=== PATIENT | female | born 1965 | race Caucasian/White ===

== ENCOUNTER 2017-04-11 12:17 | Outpatient (CLI) | payer OTHER ==
--- NOTE | 2017-04-13 10:02 | Mammography Report ---
DIGITAL SCREENING MAMMOGRAM: 04/11/2017 CLINICAL INDICATION: A 52-year-old nulliparous patient for screening. COMPARISON: 08/2015, 11/2013, 10/2006, 08/2005. The breasts demonstrate scattered fibroglandular densities bilaterally. A few punctate, typically be nign calcifications are present. No suspicious masses, clustered microcalcifications, or regions of architectural distortion are identified. IMPRESSION: BENIGN FINDINGS. RECOMMENDATION: ROUTINE ANNUAL SCREENING UNLESS OTHERWISE CLINICALLY INDICATED. BIRADS CATEGORY: 2, BENIGN FINDINGS. STANDARD QUALIFYING STATEMENTS 1. This examination was reviewed with the aid of Computed-Aided Detection (CAD). 2. A negative or benign imaging report should not delay biopsy if clinically suspicious findings are present. Consider surgical consultation if warranted. More than 5% of cancers are not identified b y imaging. 3. Dense breasts may obscure an underlying neoplasm. JOB #: [id number] EXT JOB #:[id number]
== END 2017-04-11 12:18 | disposition home or self-care (01) ==
LOC: DI.S 12:17
PROVIDERS: ATTEND Physician Assistant
DX: Z12.31 Encounter for screening mammogram for malignant neoplasm of breast (principal)
CPT/HCPCS: 77067

== ENCOUNTER 2017-08-23 14:52 | Outpatient (CLI) | payer OTHER ==
--- NOTE | 2017-08-26 22:25 | XRAY Report ---
DATE OF SERVICE: 08/23/2017 TWO VIEW CHEST: 08/23/2017 CLINICAL INDICATION: Cough, wheezing. FINDINGS: Frontal and lateral views of the chest demonstrate a normal cardiac silhouette. The lung s are clear. No effusion or pneumothorax is present. IMPRESSION: Normal chest. TD: 08/24/2017 19:00
== END 2017-08-23 14:53 | disposition home or self-care (01) ==
LOC: DI.S 14:52
PROVIDERS: ATTEND Nurse Practitioner Family
DX: R05 Cough (principal); R06.2 Wheezing
CPT/HCPCS: 71020

== ENCOUNTER 2017-10-20 10:49 | Outpatient (CLI) | payer OTHER ==
--- NOTE | 2017-10-20 12:20 | CT Report ---
EXAM: CT CHEST EXAM DATE: 10/20/2017 11:23 AM. CLINICAL HISTORY: CHRONIC COUGH. COMPARISONS: Chest radiograph 08/23/2017. TECHNIQUE: Routine helical CT imaging was performed through the chest. IV contrast: None. Reconstruct ions: Coronal and sagittal. In accordance with CT protocol optimization, one or more of the following dose reduction techniques w ere utilized for this exam: automated exposure control, adjustment of mA and/or KV based on patient s ize, or use of iterative reconstructive technique. FINDINGS: Lungs/Pleura: There is a tiny 1.6 mm nodule in the right middle lobe as seen on series 4, image 32. N o bronchial thickening, consolidation, or edema. Pulmonary vasculature is normal. No pericardial or p leural effusion. No pneumothorax. Mediastinum: Normal. No adenopathy or masses. The heart and great vessels are normal. Bones: Unremarkable. Visualized Abdomen: There is diverticulosis. Remainder of the visualized abdomen is unremarkable. Other: None. IMPRESSION: 1. Tiny 1.6 mm nodule in the right middle lobe. For nodules <6 mm, no routine follow-up is needed in low-risk patients. Optional CT at 12 months can be performed in high risk patients. This is according to Fleischner society recommendations 2017. 2. The remainder of the chest is unremarkable. 3. Diverticulosis. [facility] Referring Provider Line: [phone] SITE ID: [id number]
== END 2017-10-20 10:50 | disposition home or self-care (01) ==
LOC: DI 10:49
PROVIDERS: ATTEND Registered Nurse
DX: R91.1 Solitary pulmonary nodule (principal); K57.90 Diverticulosis of intestine, part unspecified, without perforation or abscess without bleeding
CPT/HCPCS: 71250

== ENCOUNTER 2017-11-20 10:30 | Outpatient (CLI) | payer OTHER ==
--- NOTE | 2017-11-20 12:18 | Ultrasound Report ---
RIGHT UPPER QUADRANT ULTRASOUND: 11/20/2017 CLINICAL INDICATION: Elevated LFTs. TECHNIQUE: Real-time scanning was performed with medical office representative static images obtained. FINDINGS: The liver measures 17.2 cm. Hepatic echogenicity is diffusely increased, compatible with fatty infiltration. In the lateral right lobe of the liver, there is a 1.5 x 1.3 x 1.1 cm echogenic nodule. Further evaluation with liver protocol CT is recommended to evaluate for a hemangioma at this site. The gallbladder is normal. The common bile duct measures 3 mm. The right kidney measures 11.8 cm, and demonstrates no hydronephrosis. No free fluid is present. IMPRESSION: 1. FATTY INFILTRATION OF THE LIVER. NO EVIDENCE OF CHOLELITHIASIS OR BILIARY OBSTRUCTION. 2. ECHOGENIC 1.5 CM NODULE IN THE LATERAL RIGHT LOBE OF THE LIVER. FURTHER EVALUATION WITH LIVER PROTOCOL CT IS RECOMMENDED TO EVALUATE FOR A HEMANGIOMA AT THIS SITE. TD: 11/20/2017 12:17
== END 2017-11-20 10:31 | disposition home or self-care (01) ==
LOC: DI 10:30
PROVIDERS: ATTEND Physician Assistant
DX: K76.0 Fatty (change of) liver, not elsewhere classified (principal); R16.0 Hepatomegaly, not elsewhere classified
CPT/HCPCS: 76705

== ENCOUNTER 2017-11-24 08:33 | Outpatient (CLI) | payer OTHER ==
[2017-11-24 09:08] LABS: ALBUMIN 4.3 g/dL (3.2-5.5); ALBUMIN/GLOBULIN RATIO 1.3 (1.0-2.2); BILIRUBIN,TOTAL 0.8 mg/dL (0.2-1.0); CALCIUM 9.4 mg/dL (8.5-10.3); CREATININE 0.5 mg/dL (0.4-1.0); TOTAL PROTEIN 7.5 g/dL (6.7-8.2)
[2017-11-24] MEDS ORDERED: IOPAMIDOL-300 100 ML VIAL ONE (09:40)
[2017-11-24] MEDS ORDERED: IOPAMIDOL-300 100 ML VIAL IVP ONE (10:24)
--- NOTE | 2017-11-24 21:20 | CT Report ---
EXAM: CT ABDOMEN WITHOUT AND WITH CONTRAST EXAM DATE: 11/24/2017 10:25 AM. CLINICAL HISTORY: Abnormal liver nodule, right upper quadrant. COMPARISONS: None. TECHNIQUE: Routine multiphase liver CT before and after the administration of IV contrast including 3 phase postcontrast imaging. IV contrast: ISOVUE 300, 100 mL. Enteric contrast: None. Reconstructions : Coronal and sagittal. In accordance with CT protocol optimization, one or more of the following dose reduction techniques w ere utilized for this exam: automated exposure control, adjustment of mA and/or KV based on patient s ize, or use of iterative reconstructive technique. FINDINGS: Lung Bases: Normal. Liver: Mild diffuse decreased density is consistent with fatty infiltration. There is a bilobed lesio n within the lateral aspect of the lower right lobe which is most evident on the portal venous phase of enhancement measuring approximately 1.9 x 2.7 cm (). On precontrast imaging there is subtle, s light increased density suggested within at least a portion of this relative to the liver diffusely, which could indicate an area of greater focal fatty infiltration. There is some subtle peripheral enh ancement suggested on the initial postcontrast phase (actually late arterial/early portal), without d istinct nodularity. Lesion is less evident on the delayed imaging with some probable progressive velasquez yed enhancement. Therefore, this may represent a hemangioma although it is not definitive. No other h epatic abnormality demonstrated. Gallbladder/Biliary System: Normal. No ductal dilatation or visualized stones. Other Solid Organs: Normal. No masses or abnormal enhancement. Bowel: The visualized bowel loops are normal. Bones: Degenerative disease in the lumbar spine. No acute abnormality demonstrated. Other: None. IMPRESSION: 1. Approximately 2.7 cm focal lesion within the right hepatic lobe corresponds with the ultrasound fi nding and demonstrates some features suggestive of a hemangioma, although the findings are not diagno stic. If further characterization were indicated, MR imaging with and without contrast would be recom mended. 2. Diffuse fatty infiltration of the liver. 3. No other acute abnormality of the abdomen demonstrated. [facility] Referring Provider Line: [phone] SITE ID: [id number]
== END 2017-11-24 08:34 | disposition home or self-care (01) ==
LOC: DI 08:33
PROVIDERS: ATTEND Physician Assistant
DX: K76.9 Liver disease, unspecified (principal); K76.0 Fatty (change of) liver, not elsewhere classified; R10.11 Right upper quadrant pain
CPT/HCPCS: 74170; 80053; Q9967

== ENCOUNTER 2017-12-05 14:41 | Outpatient (CLI) | payer OTHER ==
[~2017-12-05 14:41] MED LIST: GADOBUTROL 15 MMOL/15 ML VIAL ONE
[2017-12-05] MEDS ORDERED: GADOBUTROL 15 MMOL/15 ML VIAL IVP ONE (15:44)
--- NOTE | 2017-12-06 08:49 | MRI Report ---
EXAM: MR ABDOMEN WITH AND WITHOUT CONTRAST (MR LIVER) EXAM DATE: 12/05/2017 03:52 PM. CLINICAL HISTORY: FATTY (CHANGE OF) LIVER, LIVER DISEASE. Evaluate indeterminate liver lesion COMPARISON: 11/24/2017 CT. TECHNIQUE: Multiplanar breath-hold T1, T2, and DWI sequences obtained through the abdomen on an [facility] justice. Images obtained before and after administration of 12 mL Gadavist intravenous contrast. Multip hase postcontrast images obtained of the liver and abdomen. FINDINGS: Lung Bases: Unremarkable. Liver: The liver has normal size and morphology. Moderate to severe signal loss on opposed phase imag ing compared to in phase imaging reflects moderate to severe diffuse hepatic steatosis. Lesions seen on comparison study represents a 3.1 x 2.1 cm hepatic segment 5/6 subcapsular lesion (801/10) demonst rating avid T2 signal hyperintensity. On dynamic contrast-enhanced sequences this lesion shows progre ssive subtle rim enhancement with nodular discontinuous enhancement on the delayed phase but does not completely fill in. Given these imaging findings, the lesion is most consistent with a benign sclero sing hemangioma. No other focal liver lesions are seen. Hepatic and portal veins are patent. Gallbladder/bile ducts: The gallbladder is partially distended and appears normal with no wall thicke paulie or stone. No intrahepatic or extra hepatic biliary dilation or filling defects seen. No abnormal biliary enhancement. Pancreas: The pancreas appears normal with no mass or ductal dilatation. Spleen: The spleen appears normal. Kidneys and Adrenals: The kidneys appear normal with no mass or hydronephrosis. There are few simple cortical and parapelvic cysts in the kidneys bilaterally. cysts in the kidneys. The adrenals appear n ormal. Bowel: The small bowel and colon appear normal caliber with no inflammation or obstruction. Scattered colonic diverticula seen. Retroperitoneum: The retroperitoneal structures appear normal with no mass or lymphadenopathy. Bones: No focal marrow signal abnormalities in the visualized bones. Multilevel mild degenerative dis k desiccation seen throughout the spine. IMPRESSION: 1. 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 No other focal liver lesion is seen. 2. Moderate to severe diffuse hepatic steatosis evident. [facility] Referring Provider Line: [phone] SITE ID: [id number]
== END 2017-12-05 14:42 | disposition home or self-care (01) ==
LOC: DI 14:41
PROVIDERS: ATTEND Physician Assistant
DX: D18.03 Hemangioma of intra-abdominal structures (principal); K76.0 Fatty (change of) liver, not elsewhere classified
CPT/HCPCS: 74183; A9585

== ENCOUNTER 2018-01-05 15:49 | Outpatient (CLI) | payer OTHER ==
--- NOTE | 2018-01-07 09:11 | MRI Preliminary Report ---
Exam: MRI CERVICAL SPINE W/O IMPRESSION: 1. Potentially significant central canal stenosis at multiple levels. Anterior cord compression and p rominent central stenosis is present from posterior disk herniations, these findings are most severe at the C5-C6 and C6-C7 levels. 2. Prominent degenerative foraminal stenosis at multiple levels, especially on the right at C2-C3, on the left at C3-C4, bilaterally at C4-C5 and on the right at C5-C6. 3. No definite focal signal abnormality of the spinal cord including were compressed at multiple leve ls. 4. Multiple additional degenerative changes with less severe appearing stenosis are present as enumer ated level by level in the final report. [facility] SITE ID: [id number]
--- NOTE | 2018-01-07 09:41 | MRI Report ---
EXAM: MRI CERVICAL SPINE WITHOUT CONTRAST EXAM DATE: 01/05/2018 04:35 PM. CLINICAL HISTORY: Chronic neck pain. Cervical radiculopathy. COMPARISONS: No prior cervical spine MRI. TECHNIQUE: Multiplanar, multisequence T1-weighted and fluid-sensitive sequences of the cervical spine without contrast. Other: None. FINDINGS: Neurologic Structures: The visualized posterior fossa structures are unremarkable. Multilevel central stenosis and anterior cord compression by disk herniations, likely chronic, no clearly defined assoc iated signal abnormality of the compressed spinal cord. Alignment: No focal malalignment. Bone Marrow: No acute marrow edema. Interspace Levels/Facets: C1-C2: Unremarkable. C2-C3: Patent central canal. No cord impingement. Shallow bulging annulus. Bilateral foraminal stenos is, minimal to mild on the left but at least moderate on the right. Prominent facet arthropathy on th e right with anterior and posterior facet spurring which contributes anteriorly to foraminal stenosis . C3-C4: Shallow bulging annulus. Minimal central stenosis. No cord impingement. Foraminal stenosis is mild on the right and moderate to severe on the left from asymmetric left greater than right uncinate process spurring, facet arthropathy and additional protrusion of disk into the left neural foramen. C4-C5: Moderate degenerative disk disease. Mild central stenosis from a broad-based posterior disk pr otrusion that is more severe to the right of midline and protrudes posteriorly into the central canal 2-3 mm. Mild flattening of the ventral cord surface especially right of midline. Bilateral foraminal stenosis from uncinate process spurring and mild facet hypertrophy is present, foraminal stenosis ap pears moderate to severe bilaterally. C5-C6: Moderately prominent degenerative disk disease with anterior and posterior marginal spurring a nd large broad-based posterior disk herniation creating at least moderate central canal stenosis. In the midline disk material protrudes posteriorly into the central canal at least 5 mm and there is mod erately prominent compression of the anterior spinal cord with CSF space effacement ventrally and paul paula. The midline AP dimension of the central canal is reduced to approximately 5 mm. Bilateral dege nerative foraminal stenosis appears mild to moderate on the left and at least moderate on the right. C6-C7: Moderate to marked degenerative disk disease. Anterior and posterior marginal spurring. Modera tely prominent central canal stenosis from a large broad-based posterior disk protrusion that extends posteriorly into the central canal at least 4 mm, creating prominent stenosis of the central canal w ith AP dimension of the central canal reduced in the midline to 4-5 mm. Bilateral foraminal stenosis is minimal to mild. C7-T1: Mild central canal stenosis and moderate lateral recess stenosis to the left of midline from a broad-based left posterior paracentral disk protrusion that extends into the central canal posterior ly about 3.5 mm. Minimal ventral cord flattening to the left of midline. Patent right foramen. Forami nal stenosis on the left is mild. T1-T2: Mild central canal stenosis to the left of midline where there is a 3 mm deep posterior disk p rotrusion on the left. Musculature: Mild diffuse posterior paraspinal muscle fatty atrophy without acute edema or significan t asymmetry. Other: No focal prevertebral soft tissue thickening. IMPRESSION: 1. Potentially significant central canal stenosis at multiple levels. Anterior cord compression and p rominent central stenosis is present from posterior disk herniations, these findings are most severe as described above at the C5-C6 and C6-C7 levels. 2. Prominent degenerative foraminal stenosis at multiple levels, especially on the right at C2-C3, on the left at C3-C4, bilaterally at C4-C5, and on the right at C5-C6. 3. No definite focal signal abnormality of the spinal cord including where compressed at multiple lev els. 4. Multiple additional degenerative changes with less severe appearing stenosis are present as enumer ated level by level above. [facility] Referring Provider Line: [phone] SITE ID: [id number]
== END 2018-01-05 15:50 | disposition home or self-care (01) ==
LOC: DI 15:49
PROVIDERS: ATTEND Physician Assistant
DX: M54.12 Radiculopathy, cervical region (principal); M54.2 Cervicalgia; G89.29 Other chronic pain; R51 Headache; M50.30 Other cervical disc degeneration, unspecified cervical region; M99.81 Other biomechanical lesions of cervical region
CPT/HCPCS: 72141

== ENCOUNTER 2018-12-27 10:48 | Outpatient (CLI) | payer OTHER | END 2018-12-27 10:49 | disposition home or self-care (01) | LOC: DI 10:48 | PROVIDERS: ATTEND Physician Assistant | DX: R06.00 Dyspnea, unspecified (principal) | CPT/HCPCS: 93306 ==

== ENCOUNTER 2019-08-05 11:32 | Outpatient (CLI) | payer OTHER ==
--- NOTE | 2019-08-06 08:39 | XRAY Report ---
Reason: DYSPNEA, UNSPECIFIED Procedure Date: 08/05/2019 Accession Number: [id number] / [id number] Procedure: XRS - Chest 2 View X-Ray CPT Code: 51597 Final Report FULL RESULT: EXAM: CHEST RADIOGRAPHY EXAM DATE: 08/05/2019 11:44 AM. CLINICAL HISTORY: Dyspnea, unspecified. COMPARISON: CHEST 2 VIEW PA/LAT 08/23/2017 3:08 PM CHEST W/O 10/20/2017 11:23 AM. TECHNIQUE: 2 views. FINDINGS: Lungs/Pleura: Decreased lung volumes with probable mild left lung base linear atelectasis. No consolidative pneumonia seen. No pneumothorax or effusion. Mediastinum: Heart and mediastinal contours are unremarkable. Other: Previous cervical surgery. IMPRESSION: Decreased lung volumes without definite acute process in the chest. [facility]
== END 2019-08-05 11:33 | disposition home or self-care (01) ==
LOC: DI.S 11:32
PROVIDERS: ATTEND Nurse Practitioner Family
DX: R06.00 Dyspnea, unspecified (principal)
CPT/HCPCS: 71046

== ENCOUNTER 2019-08-06 11:12 | Emergency (ER) | payer OTHER ==
[2019-08-06] MEDS ORDERED: MAGNESIUM SULFATE 2 GRAM 2 GM/50 ML BAG IV ONE (11:39)
[2019-08-06] MEDS ORDERED: IPRATROPIUM/ALBUTEROL 3 ML NEB INH STA (11:39)
[2019-08-06] MEDS ORDERED: methylPREDNISolone SUCCINATE 125 MG/2 ML VIAL IVP STA (11:39)
[2019-08-06] MEDS ORDERED: ALBUTEROL NEB 2.5 MG/3 ML INH STA (12:14)
--- NOTE | 2019-08-06 13:32 | ED Physician Documentation ---
PD HPI DYSPNEA - Stated complaint Stated Complaint: SOA - Chief complaint Chief Complaint: Resp - History obtained from History obtained from: Patient - History of Present Illness Timing - onset: How many weeks ago (8) Timing - onset during: Light activity, Other Timing - duration: Weeks (8) Timing - details: Gradual onset (worsening) Severity Comments: moderate Inciting event(s): Other (cough) Improved by: Inhaler/neb Worsened by: Exertion Associated symptoms: Cough, Wheezing. No: Fever, Hemoptysis, Chest pain / discomfort, Palpitations, Diaphoresis, Bilateral edema, Unilateral edema, Anxiety Similar symptoms before: Other (has had this occur once before 2 years ago with a bronchitis but not as bad as today) Recently seen: Clinic (sent to the ED, concern for worsening asthma. Pt has no prior hx of asthma or COPD and is not a smoker) - Treatment prior to arrival Treatment prior to arrival: inhaler from the clinic today, has already tried a course of azithromycin and prednisone without improvement. Had a CXR yetserday which is normal in appearance. Review of Systems Ten Systems: 10 systems reviewed and negative Constitutional: denies: Fever Ears: reports: Reviewed and negative Nose: denies: Congestion Throat: reports: Reviewed and negative. denies: Sore throat Cardiac: denies: Chest pain / pressure, Palpitations, Pedal edema, Calf pain Respiratory: reports: Dyspnea, Cough (productive), Wheezing GI: denies: Abdominal Pain, Nausea, Vomiting Skin: reports: Reviewed and negative Musculoskeletal: reports: Reviewed and negative Neurologic: reports: Reviewed and negative Psychiatric: reports: Reviewed and negative Immunocompromised: reports: Reviewed and negative PD PAST MEDICAL HISTORY - Past Medical History Past Medical History: No - Present Medications Home Medications: Ambulatory Orders Medication Instructions Recorded Confirmed Atenolol 50 mg PO DAILY 12/12/14 12/12/14 Atorvastatin [Lipitor] 10 mg PO DAILY 12/12/14 12/12/14 Metformin HCl 1,000 mg PO DAILY 12/12/14 12/12/14 buPROPion HCl [Bupropion HCl Sr] 300 mg PO DAILY 12/12/14 12/12/14 Albuterol Sulf [Ventolin Hfa 1 - 2 puffs INH Q4HR PRN #1 inhaler 08/06/19 Inhaler] predniSONE [Prednisone] 40 mg PO DAILY #10 tablet 08/06/19 - Allergies Allergies/Adverse Reactions: Allergies Allergy/AdvReac Type Severity Reaction Status Date / Time No Known Drug Allergies Allergy Verified 08/06/19 11:19 - Social History Does the pt smoke?: No Smoking Status: Never smoker Does the pt drink ETOH?: Yes Does the pt have substance abuse?: No - POLST Patient has POLST: No PD ED PE NORMAL - Vitals Vital signs reviewed: Yes - General General: Alert and oriented X 3, No acute distress, Well developed/nourished - HEENT HEENT: Atraumatic, Moist mucous membranes, Pharynx benign - Neck Neck: Supple, no meningeal sign, No JVD - Cardiac Cardiac: RRR, No murmur, No gallop, No rub - Abdomen Abdomen: Soft, Non distended - Female Female : Deferred - Rectal Rectal: Deferred - Derm Derm: Normal color, Warm and dry, No rash - Extremities Extremities: No deformity, No tenderness to palpate, Normal ROM s pain, No edema, No calf tenderness / cord - Neuro Neuro: Alert and oriented X 3, No motor deficit, No sensory deficit Eye Opening: Spontaneous Motor: Obeys Commands Verbal: Oriented GCS Score: 15 - Psych Psych: Normal mood, Normal affect PD ED PE EXPANDED - Respiratory Respiratory: Labored, Gasping, Wheezing (diffuse), Decreased breath sounds (diffusely ). No: Stridor, Retractions, Rhonchi Results - Vitals Vitals: Vital Signs - 24 hr 08/06/19 08/06/19 08/06/19 11:21 12:00 12:11 Temperature 36.7 C Heart Rate 79 95 76 Respiratory 24 16 20 Rate Blood Pressure 153/97 H 134/99 H O2 Saturation 92 93 08/06/19 08/06/19 08/06/19 12:30 13:08 13:57 Temperature Heart Rate 78 93 100 Respiratory 18 18 18 Rate Blood Pressure 118/81 H 113/78 O2 Saturation 97 93 Oxygen O2 Source Room air - Rads (name of study) CXR Radiology: EMP read indepedently (no acute infiltrate, L hemidiaphragm elevated, pt with known diaphragmatic paralysis ) PD MEDICAL DECISION MAKING - ED course Complexity details: reviewed old records, reviewed results, re-evaluated patient, considered differential, d/w patient ED course: ddx- asthma, pneumonia, pneumothorax, PE, bronchitis, reactive airway disease, 54 y/o F with hx and exam as documented, has diffuse wheezing, tight on initial evaluation, CXR yesterday was clear. 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 She reports a cough productive for a few weeks. Denies any smoking or known asthma diagnosis though has had this once before. No fever, pt is gasping initially speaking in broken sentences. Given magnesium infusion, duoneb, solumedrol with some improvement followed by a continuous albuterol neb with marked improvement. Pt now speaking in full sentences, sats have been stable and continue to be here. Doubt PE, no risk factors and pt wtih wheezing. CXR neg for pneumonia or pneumothorax. Her PCP already wrote her for augmentin which she can continue as well as a steroid inhaler. Will give a short course of steroids again, pt has a spacer and will refill her albuterol. She is stable for discharge with return precautions as needed. - Critical Care Time(min): 30 Comments: magnesium infusion, solumedrol, duoneb followed by continuous neb, reassessment of breath sounds, respiratory status Time Includes: Direct patient care, Review records, Reassess patient, Document care, See progress note Data interpretation: Pulse ox, CXR Departure - Departure Disposition: 01 Home, Self Care Clinical Impression: Acute bronchitis Qualifiers: Bronchitis organism: unspecified organism Qualified Code(s): J20.9 - Acute bronchitis, unspecified Condition: Stable Record reviewed to determine appropriate education?: Yes Instructions: ED Bronchitis Asthmatic Follow-Up: Gail Oswald PA [Primary Care Provider] - Within 1 week (recheck your symptoms ) Prescriptions: Albuterol Sulf [Ventolin Hfa Inhaler] 1 - 2 puffs INH Q4HR PRN #1 inhaler PRN Reason: Shortness Of Air/Wheezing predniSONE [Prednisone] 40 mg PO DAILY #10 tablet Comments: You history and exam are consistent with asthmatic bronchitis. You should continue to use the prescribed inhaler from your regular doctor and take the albuterol rescue inhaler as needed if wheezing or breathing difficulty. Take the steroid course until complete. Your xray showed no evidence of pneumonia but a worsening elevated hemidiaphragm due to your diaphragmatic paralysis. There is no evidence of pneumonia but you can take the antibiotics your doctor prescribed in case this is a bacterial respiratory illness. Return to the ED if worsening symptoms.
--- NOTE | 2019-08-06 14:06 | XRAY Report ---
Reason: chest pain Procedure Date: 08/06/2019 Accession Number: [id number] / [id number] Procedure: XR - Chest 1 View X-Ray CPT Code: 70902 Final Report FULL RESULT: EXAM: CHEST RADIOGRAPHY EXAM DATE: 08/06/2019 01:53 PM. CLINICAL HISTORY: Chest pain. COMPARISON: CHEST 2 VIEW 08/05/2019 11:57 AM. TECHNIQUE: 1 view. FINDINGS: Lungs/Pleura: Left basal atelectasis No pleural effusion. No pneumothorax. Elevated left hemidiaphragm Mediastinum: Within exam limitations, the cardiomediastinal contour is normal. Other: Post cervical spine fusion IMPRESSION: Left basilar atelectasis [facility]
[2019-08-06 14:34] VITALS: BP 124/79
== END 2019-08-06 14:36 | disposition home or self-care (01) ==
LOC: ED 11:12
DX: J20.9 Acute bronchitis, unspecified (principal); J98.6 Disorders of diaphragm; G97.49 Accidental puncture and laceration of other nervous system organ or structure during other procedure; Y83.8 Other surgical procedures as the cause of abnormal reaction of the patient, or of later complication, without mention of misadventure at the time of the procedure
CPT/HCPCS: 71045; 94640; 96365; 96375; 99291

== ENCOUNTER 2019-09-19 10:13 | Outpatient (CLI) | payer OTHER ==
--- NOTE | 2019-09-22 12:29 | Mammography Report ---
Reason: ROUTINE MAMMO Procedure Date: 09/19/2019 Accession Number: [id number] / [id number] Procedure: MGS - Screening Mammo Dig Bilat CPT Code: Final Report FULL RESULT: EXAM: Screening Mammo Dig Bilat DATE: 09/19/2019 10:28 AM CLINICAL HISTORY: Screening encounter. History of nulliparity. TECHNIQUE: (B) - Bilateral CC and MLO views were obtained. COMPARISON: January 09, 2017 through 12/17/2013. PARENCHYMAL PATTERN: (A) - The breast(s) demonstrate(s) scattered fibroglandular densities. FINDINGS: There are no suspicious masses, calcifications, or areas of distortion. IMPRESSION: Negative examination. BI-RADS category 1. RECOMMENDATION: (ANNUAL) - Recommend routine annual screening mammography. BI-RADS CATEGORY: (1) - Negative. STANDARD QUALIFYING STATEMENTS: 1. This examination was reviewed with the aid of Computer-Aided Detection (CAD). 2. A negative or benign imaging report should not preclude biopsy if clinically suspicious findings are present. 3. Dense breasts may obscure an underlying neoplasm. 4. This examination was reviewed without the aid of 3D breast imaging (tomosynthesis).
== END 2019-09-19 10:14 | disposition home or self-care (01) ==
LOC: DI.S 10:13
PROVIDERS: ATTEND Physician Assistant
DX: Z12.31 Encounter for screening mammogram for malignant neoplasm of breast (principal)
CPT/HCPCS: 77067

== ENCOUNTER 2020-08-25 12:17 | Outpatient (CLI) | payer OTHER | END 2020-08-25 12:18 | disposition home or self-care (01) | LOC: COV 12:17 | PROVIDERS: ATTEND Family Medicine | DX: R05 Cough (principal); Z20.828 Contact with and (suspected) exposure to other viral communicable diseases; R06.02 Shortness of breath; R09.81 Nasal congestion; R53.83 Other fatigue; M79.10 Myalgia, unspecified site; R11.2 Nausea with vomiting, unspecified ==

== ENCOUNTER 2021-08-29 08:16 | Outpatient (CLI) | payer OTHER ==
[2021-08-30 23:00] LABS: BACTERIAL VAGINOSIS DNA NEGATIVE (NEGATIVE); CANDIDA GLABRATA DNA NEGATIVE (NEGATIVE); CANDIDA GROUP DNA POSITIVE (NEGATIVE); CANDIDA KRUSEI DNA NEGATIVE (NEGATIVE); TRICHOMONAS VAGINALIS DNA NEGATIVE (NEGATIVE)
== END 2021-08-29 08:17 | disposition home or self-care (01) ==
LOC: LAB.R 08:16
PROVIDERS: ATTEND Obstetrics & Gynecology
DX: N76.0 Acute vaginitis (principal)
CPT/HCPCS: 87661; 87801

== ENCOUNTER 2021-09-11 14:13 | Outpatient (CLI) | payer BC ==
--- NOTE | 2021-09-11 15:54 | Ultrasound Report ---
PROCEDURE: Pelvic w/Transvaginal INDICATIONS: OLIGOMENORRHEA TECHNIQUE: Real-time scanning was performed of the pelvic organs, with image documentation. Additional endovagi nal scanning was necessary due to incomplete visualization of the adnexal and endometrial structures by transabdominal scanning. COMPARISON: 10/08/2009 FINDINGS: No pathologic free abdominal or pelvic fluid. Uterus: Uterus is normal in size at 7.4 x 4.7 x 5.1 cm. The uterus is anteverted and twisted upon it self. The endometrium measures 5 mm in combined thickness. There is a 2 x 1.2 x 1.8 cm intramural fi broid seen within the mid anterior uterus, which previously measured 1.4 x 1 x 1.5 cm. Nabothian cys ts are incidentally noted. Ovaries: The right ovary is not seen. The left ovary measures 2.1 x 1.4 x 2 cm and demonstrates an u nremarkable sonographic appearance. IMPRESSION: No imaging explanation is found for the patient's presenting symptoms. The endometrial stripe measures 5 mm. 2 cm uterine fibroid, which has grown in size compared to 2009. Reviewed by: Larry Bond MD on 09/11/2021 2:53 PM [place] Approved by: Larry Bond MD on 09/11/2021 2:53 PM [facility] Station ID: [id number]
== END 2021-09-11 14:14 | disposition home or self-care (01) ==
LOC: DI 14:13
PROVIDERS: ATTEND Obstetrics & Gynecology
DX: N91.5 Oligomenorrhea, unspecified (principal); D25.1 Intramural leiomyoma of uterus

== ENCOUNTER 2021-09-14 14:04 | Outpatient (CLI) | payer BC ==
--- NOTE | 2021-09-15 13:45 | Mammography Report ---
BILATERAL DIGITAL SCREENING MAMMOGRAM 3D/2D WITH EXAGGERATED CC: 09/14/2021 CLINICAL: Routine screening. Comparison is made to exams dated: 09/19/2019 mammogram and 04/11/2017 mammogram - [facility]. There are scattered fibroglandular elements in both breasts. No significant masses, calcifications, or other findings are seen in either breast. There has been no significant interval change. IMPRESSION: NEGATIVE There is no mammographic evidence of malignancy. A 1 year screening mammogram is recommended. This exam was interpreted at Station ID: [id number]. NOTE: For mammograms, a report in lay terms will be sent to the patient. Approximately 15% of breast malignancies will not be visualized mammographically. In the management of a palpable breast mass, a negative mammogram must not discourage biopsy of a clinically suspicious lesion. Electronically Signed By: Michael Virk M.D., jr/rodolfo:09/14/2021 15:03:30 ACR BI-RADS Category 1: Negative 3341F PARENCHYMAL PATTERN: (A) - The breast(s) demonstrate(s) scattered fibroglandular densities. BI-RADS CATEGORY: (1) - 1 RECOMMENDATION: (ANNUAL) - Recommend routine annual screening mammography. [id number] 1 year screening LATERALITY: (B)
== END 2021-09-14 14:05 | disposition home or self-care (01) ==
LOC: DI.S 14:04
PROVIDERS: ATTEND Obstetrics & Gynecology
DX: Z12.31 Encounter for screening mammogram for malignant neoplasm of breast (principal); Z00.00 Encounter for general adult medical examination without abnormal findings

== ENCOUNTER 2021-09-21 11:01 | Outpatient (CLI) | payer BC ==
--- NOTE | 2021-09-21 15:42 | Ultrasound Report ---
PROCEDURE: Abdomen Limited INDICATIONS: ELEVATED LFT'S TECHNIQUE: Real-time focused scanning was performed of the abdomen, with image documentation. COMPARISON: Ultrasound abdomen limited, 11/20/2017. CT chest abdomen with and without contrast, 2017. MRI abdomen with and without contrast, 12/05/2017. FINDINGS: Liver is normal in size and demonstrates coarse and diffusely increased echotexture. There is a 2.8 x 2.2 x 2.5 cm hypoechoic nodule is partial calcification in the lateral aspect of the right hepa tic lobe. It appears unchanged in size when compared to a CT dated 11/24/2017 and an MRI dated 12/06/19 18. Gallbladder is normal. No gallstones, gallbladder wall thickening, pericholecystic fluid or sonograph ic Serra sign. No intrahepatic biliary dilation. Common bile duct is normal in caliber measuring 3.9 mm. Visualized pancreas is normal. Right kidney measures 12.2 cm long. No hydronephrosis. A 4 mm echogenic focus in the inferior pole of the right kidney may be a nonobstructive stone. IMPRESSION: 1. Liver demonstrates coarse and diffusely increased echotexture compatible with hepatocellular disea se such as hepatitis. Recommend clinical correlation. 2. A 2.8 x 2.2 x 2.5 cm hypoechoic nodule with partial calcification in the lateral aspect of the rig ht hepatic lobe. This is stable since 11/24/2017 and probably an atypical hemangioma. 3. Suspect a 4 mm stone in the inferior pole of the right kidney. Reviewed by: Tessie Man MD on 09/21/2021 3:40 PM PST Approved by: Tessie Man MD on 09/21/2021 3:40 PM PST Station ID: [id number]
== END 2021-09-21 11:02 | disposition home or self-care (01) ==
LOC: DI 11:01
PROVIDERS: ATTEND Internal Medicine
DX: R94.5 Abnormal results of liver function studies (principal); R93.2 Abnormal findings on diagnostic imaging of liver and biliary tract; K76.89 Other specified diseases of liver

== ENCOUNTER 2022-06-15 10:51 | Outpatient (CLI) | payer BC ==
[2022-06-15 16:02] LABS: BASOPHILS # (AUTO) 0.1 10^3/uL (0.0-0.1); BASOPHILS % (AUTO) 0.7 %; EOSINOPHILS # (AUTO) 0.1 10^3/uL (0.0-0.7); HCT - HEMATOCRIT 41.1 % (37.0-47.0); HGB - HEMOGLOBIN 13.5 g/dL (12.0-16.0); LYMPHOCYTES # (AUTO) 1.5 10^3/uL (1.5-3.5); LYMPHOCYTES % (AUTO) 21.9 %; MEAN CORPUSCULAR HEMOGLOBIN 32.4 pg (27.0-31.0); MEAN CORPUSCULAR HGB CONC 32.8 g/dL (32.0-36.0); MEAN CORPUSCULAR VOLUME 98.6 fL (81.0-99.0); MONOCYTES # (AUTO) 0.5 10^3/uL (0.0-1.0); MONOCYTES % (AUTO) 7.4 %; NEUTROPHILS # (AUTO) 4.7 10^3/uL (1.5-6.6); NEUTROPHILS % (AUTO) 67.7 %; PLT - PLATELET COUNT 249 10^3/uL (130-450); RED BLOOD COUNT 4.17 10^6/uL (4.20-5.40); WHITE BLOOD COUNT 6.9 x10^3/uL (4.8-10.8)
[2022-06-15 16:18] LABS: MICROALBUM/CREATININE RATIO,UR 4.7 ug/mg (<30.0); MICROALBUMIN,URINE 1.2 mg/dL (0-300.0)
[2022-06-15 16:26] LABS: ALBUMIN 4.2 g/dL (3.2-5.5); ALBUMIN/GLOBULIN RATIO 1.3 (1.0-2.2); ALKALINE PHOSPHATASE 49 IU/L (42-121); ALT ALANINE AMINOTRANSFERASE 99 IU/L (10-60); AST ASPARTATE AMINOTRANSFERASE 74 IU/L (10-42); BILIRUBIN,TOTAL 0.5 mg/dL (0.2-1.0); BUN - BLOOD UREA NITROGEN 13 mg/dL (6-20); CALCIUM 9.8 mg/dL (8.5-10.3); CARBON DIOXIDE - CO2 31 mmol/L (21-32); CHLORIDE 101 mmol/L (101-111); CHOL/HDL RATIO 3.4 (<4.4); CHOLESTEROL 268 mg/dL; CREATININE 0.8 mg/dL (0.4-1.0); GFR - MDRD 74 (>89); GLUCOSE 112 mg/dL (70-100); HDL CHOLESTEROL 80 mg/dL; LDL CHOLESTEROL,CALCULATED 168 mg/dL; LDL/HDL RATIO 2.1 (<4.4); POTASSIUM 3.9 mmol/L (3.5-5.0); SODIUM 142 mmol/L (135-145); TOTAL PROTEIN 7.5 g/dL (6.7-8.2); TRIGLYCERIDES 99 mg/dL; URIC ACID 7.5 mg/dL (2.6-7.2); VLDL CHOLESTEROL 20 mg/dL
[2022-06-15 16:34] LABS: THYROID STIMULATING HORMONE 1.25 uIU/mL (0.34-5.60)
[2022-06-15 20:06] LABS: ESTIMATED AVERAGE GLUCOSE 134 mg/dL (70-100); HEMOGLOBIN A1c% 6.3 % (4.27-6.07)
== END 2022-06-15 23:59 | disposition home or self-care (01) ==
LOC: LAB.R 10:51
PROVIDERS: ATTEND Internal Medicine
DX: I10 Essential (primary) hypertension (principal); M25.50 Pain in unspecified joint; F32.A Depression, unspecified; E11.9 Type 2 diabetes mellitus without complications; R74.8 Abnormal levels of other serum enzymes; E78.5 Hyperlipidemia, unspecified; J45.909 Unspecified asthma, uncomplicated; Z79.899 Other long term (current) drug therapy
CPT/HCPCS: 80053; 80061; 82043; 82570; 82607; 83036; 83721; 84443; 84550; 85025

== ENCOUNTER 2023-08-31 10:55 | Outpatient (CLI) | payer BC ==
--- NOTE | 2023-09-03 12:55 | Ultrasound Report ---
LIMITED ULTRASOUND OF RIGHT BREAST: 08/31/2023 CLINICAL: Patient returns today to evaluate a focal asymmetry in the right breast. Palpable right nima ast lump. Comparison is made to exams dated: 08/31/2023 ultrasound, 08/31/2023 mammogram, 09/14/2021 mammogram, 08/28 mammogram, 04/11/2017 mammogram, and 09/01/2015 mammogram - [facility]. Color flow and real-time ultrasound of the right breast 8 o'clock, and retroareolar regions were perf ormed. Chilel scale images of the real-time examination were reviewed. No significant abnormalities were seen sonographically in the right breast. IMPRESSION: NEGATIVE There is no sonographic evidence of malignancy. There is no abnormality seen in the right breast to correspond with the area of clinical concern, how ever, clinical correlation and clinical followup are recommended. Patient reportedly had reduction s urgery and the palpable region may be post-operative scar. A hypoechoic region measured on the images was scanned in real time by Dr. Infante. We both believe this represents scar and adjacent fibroglandu lar tissue. No discrete mass. Clinical followup recommended. Reimaging could be considered if the palpable abnormality enlarges or becomes symptomatic. There is no abnormality seen in the right breast to correspond with the mammography finding central t o the nipple which likely represents normal fibroglandular tissue. This exam was interpreted at Station ID: [id number]. Electronically Signed By: Yoni Barrientos M.D. lc/:08/31/2023 12:51:28 letter sent: No_Letter Ultrasound BI-RADS: 1 Negative BI-RADS CATEGORY: (1) - 1 Unspecified - other recall n/a LATERALITY: (B)
--- NOTE | 2023-09-03 12:55 | Mammography Report ---
BILATERAL DIGITAL DIAGNOSTIC MAMMOGRAM 3D/2D WITH EXAGGERATED CC: 08/31/2023 CLINICAL: Palpable right breast lump. Due for bilateral exam. Comparison is made to exams dated: 09/14/2021 mammogram, 09/19/2019 mammogram, 09/01/2015 mammogram, 03/27 mammogram, and 12/17/2013 mammogram - [facility]. There are scattered areas of fibroglandular density in both breasts (category b / 25%-50% glandular t issue). There is an asymmetry in the right breast posterior depth central to the nipple seen on the mediolate ral oblique view only. This is not seen in additional views. There is a 1.2 cm oval mass in the left breast at 6 o'clock posterior depth. No other significant masses or calcifications are seen in either breast. IMPRESSION: INCOMPLETE: NEEDS ADDITIONAL IMAGING EVALUATION The asymmetry in the right breast posterior depth central to the nipple seen on the mediolateral obli que view only is indeterminate. An ultrasound is recommended. The 1.2 cm oval mass in the left breast at 6 o'clock posterior depth is indeterminate. An ultrasound is recommended. There is no abnormality seen in the right breast to correspond with the area of clinical concern, how ever, ultrasound is recommended. Based on the Tyrer Cuzick model (a risk assessment model) the patients lifetime risk is 9.9% and her 10 year risk is 3.6%. According to the ACR, ACS, and NCCN guidelines, an annual breast MRI exam meggan g with mammogram is recommended if the patients lifetime risk is 20% or greater. This exam was interpreted at Station ID: [id number]. NOTE: For mammograms, a report in lay terms will be sent to the patient. Approximately 15% of breast malignancies will not be visualized mammographically. In the management of a palpable breast mass, a negative mammogram must not discourage biopsy of a clinically suspicious lesion. Electronically Signed By: Yoni Barrientos M.D. lc/:08/31/2023 12:48:42 ACR BI-RADS Category 0: Incomplete 3340F PARENCHYMAL PATTERN: (A) - The breast(s) demonstrate(s) scattered fibroglandular densities. BI-RADS CATEGORY: (0) - 0 Ultrasound [id number] Immediate follow-up LATERALITY: (B)
--- NOTE | 2023-09-03 12:55 | Ultrasound Report ---
LIMITED ULTRASOUND OF LEFT BREAST: 08/31/2023 CLINICAL: Patient returns today to evaluate a focal asymmetry in the left breast. Comparison is made to exams dated: 08/31/2023 mammogram, 09/14/2021 mammogram, 09/19/2019 mammogram, 03/27 mammogram, 09/01/2015 mammogram, and 12/17/2013 mammogram - [facility]. Color flow and real-time ultrasound of the left breast 6-7 o'clock region were performed. Chilel scal e images of the real-time examination were reviewed. There is a 1.3 cm x 0.5 cm x 0.7 cm clustered micro cysts in the left breast at 6 o'clock middle dept h 3 cm from the nipple. This correlates with mammography findings. IMPRESSION: PROBABLY BENIGN The 1.3 cm x 0.5 cm x 0.7 cm probable clustered micro cysts in the left breast is probably benign. A follow-up mammogram and an ultrasound in 6 months is recommended to demonstrate stability. This exam was interpreted at Station ID: [id number]. Electronically Signed By: Yoni Barrientos M.D. lc/:08/31/2023 12:53:26 Ultrasound BI-RADS: 3 Probably benign BI-RADS CATEGORY: (3) - 3 Mammo and [place] [id number] 6 month follow-up LATERALITY: (B)
== END 2023-08-31 10:56 | disposition home or self-care (01) ==
LOC: DI 10:55
PROVIDERS: ATTEND Internal Medicine
DX: R92.8 Other abnormal and inconclusive findings on diagnostic imaging of breast (principal); N60.12 Diffuse cystic mastopathy of left breast

== ENCOUNTER 2023-09-05 09:13 | Outpatient (CLI) | payer BC ==
[2023-09-05 15:17] LABS: BASOPHILS # (AUTO) 0.1 10^3/uL (0.0-0.1); EOSINOPHILS # (AUTO) 0.3 10^3/uL (0.0-0.7); EOSINOPHILS % (AUTO) 4.1 %; HCT - HEMATOCRIT 35.7 % (37.0-47.0); HGB - HEMOGLOBIN 10.9 g/dL (12.0-16.0); LYMPHOCYTES # (AUTO) 1.8 10^3/uL (1.5-3.5); LYMPHOCYTES % (AUTO) 24.2 %; MEAN CORPUSCULAR HEMOGLOBIN 26.4 pg (27.0-31.0); MEAN CORPUSCULAR HGB CONC 30.5 g/dL (32.0-36.0); MEAN CORPUSCULAR VOLUME 86.4 fL (81.0-99.0); MONOCYTES # (AUTO) 0.6 10^3/uL (0.0-1.0); MONOCYTES % (AUTO) 8.2 %; NEUTROPHILS # (AUTO) 4.5 10^3/uL (1.5-6.6); PLT - PLATELET COUNT 318 10^3/uL (130-450); RED BLOOD COUNT 4.13 10^6/uL (4.20-5.40); RED CELL DISTRIBUTION WIDTH 15.9 % (12.0-15.0); WHITE BLOOD COUNT 7.3 x10^3/uL (4.8-10.8)
[2023-09-05 15:59] LABS: THYROID STIMULATING HORMONE 2.37 uIU/mL (0.34-5.60)
[2023-09-05 16:20] LABS: ALBUMIN 4.2 g/dL (3.2-5.5); ALBUMIN/GLOBULIN RATIO 1.3 (1.0-2.2); ALKALINE PHOSPHATASE 44 IU/L (42-121); ALT ALANINE AMINOTRANSFERASE 40 IU/L (10-60); AST ASPARTATE AMINOTRANSFERASE 28 IU/L (10-42); BILIRUBIN,TOTAL 0.5 mg/dL (0.2-1.0); BUN - BLOOD UREA NITROGEN 18 mg/dL (6-20); CALCIUM 9.7 mg/dL (8.5-10.3); CARBON DIOXIDE - CO2 30 mmol/L (21-32); CHLORIDE 101 mmol/L (101-111); CHOL/HDL RATIO 3.5 (<4.4); CHOLESTEROL 262 mg/dL; CREATININE 0.8 mg/dL (0.6-1.3); GFR - MDRD 74 (>89); GLUCOSE 133 mg/dL (74-104); HDL CHOLESTEROL 75 mg/dL; LDL CHOLESTEROL,CALCULATED 162 mg/dL; LDL/HDL RATIO 2.2 (<4.4); POTASSIUM 3.8 mmol/L (3.5-4.5); SODIUM 139 mmol/L (135-145); TOTAL PROTEIN 7.5 g/dL (6.4-8.9); TRIGLYCERIDES 124 mg/dL (48-352); VLDL CHOLESTEROL 25 mg/dL
[2023-09-05 21:42] LABS: ESTIMATED AVERAGE GLUCOSE 134 mg/dL (70-100); HEMOGLOBIN A1c% 6.3 % (4.27-6.07)
== END 2023-09-05 09:14 | disposition home or self-care (01) ==
LOC: LAB.S 09:13
PROVIDERS: ATTEND Internal Medicine
DX: E11.9 Type 2 diabetes mellitus without complications (principal); Z79.899 Other long term (current) drug therapy; Z13.220 Encounter for screening for lipoid disorders
CPT/HCPCS: 36415; 80053; 80061; 83036; 83721; 84443; 85025